=== PATIENT | female | born 1930 | race Caucasian/White ===

== ENCOUNTER 2017-06-19 20:11 | Outpatient (CLI) | payer MEDICARE | END 2017-06-20 07:13 | disposition home or self-care (01) | LOC: SLEEP 20:11 | PROVIDERS: ATTEND Nurse Practitioner Family | DX: G47.10 Hypersomnia, unspecified (principal); G47.33 Obstructive sleep apnea (adult) (pediatric); G47.34 Idiopathic sleep related nonobstructive alveolar hypoventilation | CPT/HCPCS: 95810 ==

== ENCOUNTER 2017-10-31 20:15 | Outpatient (CLI) | payer MEDICARE | END 2017-11-01 07:16 | disposition home or self-care (01) | LOC: SLEEP 20:15 | PROVIDERS: ATTEND Nurse Practitioner Family | DX: G47.33 Obstructive sleep apnea (adult) (pediatric) (principal) | CPT/HCPCS: 95811 ==

== ENCOUNTER → 2017-12-01 | Outpatient (CLI) | payer MEDICARE ==
[~2017-12-01] MED LIST: RT-ALBUTEROL SULF 2.5 MG/3 ML PRE-MIX VIAL INH ONE; RT-ALBUTEROL SULF 2.5 MG/3 ML PRE-MIX VIAL ONE
== END ==
LOC: RT 15:02
PROVIDERS: ATTEND Nurse Practitioner Family
DX: G47.34 Idiopathic sleep related nonobstructive alveolar hypoventilation (principal); R06.00 Dyspnea, unspecified
CPT/HCPCS: 94060; 94726; 94729

== ENCOUNTER → 2018-04-03 | Outpatient (CLI) | payer MEDICARE ==
[2018-04-03 11:39] LABS: BASOPHILS # (AUTO) 0.1 10^3/uL (0.0-0.1); BASOPHILS % (AUTO) 1 % (0-10); EOSINOPHILS # (AUTO) 0.7 10^3/uL (0.0-0.3); EOSINOPHILS % (AUTO) 9 % (0-10); HEMATOCRIT 37 % (35-52); HEMOGLOBIN 12.2 G/DL (11.5-16.0); LYMPHOCYTES # (AUTO) 1.8 X 10^3 (1.0-4.0); LYMPHOCYTES % (AUTO) 22 % (12-44); MEAN CORPUSCULAR HEMOGLOBIN 28 PG (25-34); MEAN CORPUSCULAR HGB CONC 33 G/DL (32-36); MEAN CORPUSCULAR VOLUME 86 FL (80-99); MEAN PLATELET VOLUME 10.8 FL (7.4-10.4); MONOCYTES # (AUTO) 1.1 X 10^3 (0.0-1.0); MONOCYTES % (AUTO) 13 % (0-12); NEUTROPHILS # (AUTO) 4.8 X 10^3 (1.8-7.8); NEUTROPHILS % (AUTO) 56 % (42-75); PLATELET COUNT 192 10^3/uL (130-400); RED BLOOD COUNT 4.29 10^6/uL (4.35-5.85); RED CELL DISTRIBUTION WIDTH 13.3 % (10.0-14.5); WHITE BLOOD COUNT 8.5 10^3/uL (4.3-11.0)
[2018-04-03 11:56] LABS: ALANINE AMINOTRANSFERASE 16 U/L (0-55); ALBUMIN 3.7 GM/DL (3.2-4.5); ALKALINE PHOSPHATASE 60 U/L (40-136); BILIRUBIN,TOTAL 0.4 MG/DL (0.1-1.0); BUN/CREATININE RATIO 18; CALCIUM 9.8 MG/DL (8.5-10.1); CARBON DIOXIDE 26 MMOL/L (21-32); CHLORIDE 103 MMOL/L (98-107); CREATININE SERUM 0.84 MG/DL (0.60-1.30); GFR ESTIMATED > 60; GLUCOSE 256 MG/DL (70-105); POTASSIUM 3.7 MMOL/L (3.6-5.0); SODIUM 139 MMOL/L (135-145); TOTAL PROTEIN 6.3 GM/DL (6.4-8.2)
--- NOTE | 2018-04-03 13:50 | Diagnostic Imaging Report ---
PROCEDURE: CT chest without contrast. TECHNIQUE: Multiple contiguous axial images were obtained through the chest without the use of intravenous contrast. INDICATION: Pneumonia, dyspnea and COPD. No priors. There is no lung mass or suspicious pulmonary nodule. There is no effusion or pneumothorax. There is very mild micronodular infiltrate in the right upper lobe laterally which could be scarring or reflect a mild active inflammatory process. No alveolar consolidation however. No blebs, bullous disease or bronchiectasis. Lung volumes symmetric and normal. No pathological appearing axillary, hilar or mediastinal lymph nodes, aortic and coronary arterial atherosclerotic calcifications. The heart size is normal. The upper abdomen showing no acute appearing abnormality although there is a hyperdense nodule upper pole cortex left kidney oriented medially measuring 3 cm. This could be a complex cystic/hemorrhagic lesion or solid mass. Consider renal ultrasound as its further workup. IMPRESSION: Micronodular interstitial scarring versus mild infiltrate right upper lobe. No other potential acute finding. No alveolar consolidation, effusion or lymphadenopathy. The right upper pole renal mass hyperdense could be hemorrhagic cyst or solid lesion, correlative ultrasound recommended. Dictated by: Dictated on workstation # [id number]
== END ==
LOC: RAD 11:25
PROVIDERS: ATTEND Nurse Practitioner Family
DX: J18.9 Pneumonia, unspecified organism (principal); J44.9 Chronic obstructive pulmonary disease, unspecified; J30.2 Other seasonal allergic rhinitis; N28.89 Other specified disorders of kidney and ureter
CPT/HCPCS: 36415; 71250; 80053; 85025

== ENCOUNTER → 2018-06-02 | Outpatient (CLI) | payer MEDICARE ==
--- NOTE | 2018-06-02 12:23 | Diagnostic Imaging Report ---
PROCEDURE: CT chest without contrast. TECHNIQUE: Multiple contiguous axial images were obtained through the chest without the use of intravenous contrast. INDICATION: Pneumonia. FINDINGS: The previous CT chest exam of 04/03/2018 noted a very mild micronodular infiltrate in the right upper lobe. On this exam, that abnormal parenchymal density has diminished. There is only a very small amount of residual density still present in this region. There are also still patchy alveolar/interstitial infiltrates in the right upper lobe anteriorly. These are similar to the prior exam and could be chronic in nature. In addition, there does appear to be a small 3.5 mm nodule in the right upper lobe (image 22/57). There may be one or two other slightly smaller nodules in this same region. These nodules do not seem to have changed adversely since the prior study and they are most likely benign. Even so, a six-month followup CT chest exam would be recommended. The right lung base and the left lung remain generally clear. The heart size is within normal limits and stable when compared to the prior exam. Coronary artery calcifications are again noted. The aorta is not abnormally dilated. There is no obvious mediastinal or hilar adenopathy. The prominent right lobe of the thyroid seen on the prior study is again evident. The left lobe is generally unremarkable. There is no obvious breast mass. The sections through the upper abdomen again show the roughly 3 cm hyperdense nodule associated with the superior pole of the right kidney. This finding is essentially no different than on the prior exam. This may represent a complicated cyst. I would concur with the recommendation of the previous exam however that ultrasound be performed to better characterize this finding. The bone windows show no evidence for fracture or for destructive lesion. IMPRESSION: 1. The appearance of the chest has improved since the prior exam as the mild micronodular infiltrate in the right upper lobe has diminished. There are still patchy alveolar/interstitial infiltrates in this area which may well be chronic in nature. There is no acute cardiopulmonary abnormality identified. 2. The small nodules in the right upper lobe are most likely benign. Recommendations, as above. 3. There is coronary artery disease. 4. There is a persistent hyperdense nodule along the superior pole of the right kidney. Ultrasound would be recommended to better characterize this finding. Dictated by: Dictated on workstation # [id number]
== END ==
LOC: RAD 11:11
PROVIDERS: ATTEND Nurse Practitioner Family
DX: I25.10 Atherosclerotic heart disease of native coronary artery without angina pectoris (principal); J18.9 Pneumonia, unspecified organism; N28.89 Other specified disorders of kidney and ureter; J98.4 Other disorders of lung; R91.8 Other nonspecific abnormal finding of lung field; G47.33 Obstructive sleep apnea (adult) (pediatric); G47.34 Idiopathic sleep related nonobstructive alveolar hypoventilation; G47.10 Hypersomnia, unspecified
CPT/HCPCS: 71250

== ENCOUNTER 2018-11-30 16:05 | Inpatient (IN) | payer MEDICARE | END 2018-12-03 13:13 | disposition home or self-care (01) | LOC: 4TH 16:05 | DX: J44.1 Chronic obstructive pulmonary disease with (acute) exacerbation (principal); J98.09 Other diseases of bronchus, not elsewhere classified; I10 Essential (primary) hypertension; E78.5 Hyperlipidemia, unspecified; E83.42 Hypomagnesemia; E87.6 Hypokalemia; E11.40 Type 2 diabetes mellitus with diabetic neuropathy, unspecified; E11.65 Type 2 diabetes mellitus with hyperglycemia; T38.0X5A Adverse effect of glucocorticoids and synthetic analogues, initial encounter; M10.9 Gout, unspecified; Z66 Do not resuscitate; F03.90 Unspecified dementia, unspecified severity, without behavioral disturbance, psychotic disturbance, mood disturbance, and anxiety; Z87.891 Personal history of nicotine dependence; Z79.84 Long term (current) use of oral hypoglycemic drugs ==

== ENCOUNTER → 2018-11-30 | Outpatient (CLI) | payer MEDICARE ==
[~2018-11-30] MED LIST changes: +ACET325T49 PO; +ASPI-586 PO; +CALC600T80 PO; +CHLO25TA22 PO; +CLON0.1T PO; +CRV25T PO; +DEXL60CA PO; +DICL100G18 TP; +DONE5TAB8 PO; +FEBU40TA PO; +FLUT1BLS IH; +FURO-124 PO; +GABA-488 PO; +GLMP2T PO; +IPRA3AMP31 IH; +ISM60TCR PO; +LOPE2CAP PO; +LOSA50TA2 PO; +MAGN400O7 PO; +MINO2.5T PO; +MONT10TA21 PO; +ONDN4T PO; +PEDI18TA2 PO; +POTA10TA36 PO; +PRED10TA22 PO; +ROSU5TAB PO; +RT-ALBUINH IH; -RT-ALBUTEROL SULF 2.5 MG/3 ML PRE-MIX VIAL INH ONE; -RT-ALBUTEROL SULF 2.5 MG/3 ML PRE-MIX VIAL ONE
--- NOTE | 2018-11-30 15:51 | Diagnostic Imaging Report ---
PROCEDURE: CT chest without contrast. TECHNIQUE: Multiple contiguous axial images were obtained through the chest without the use of intravenous contrast. Auto Exposure Controls were utilized during the CT exam to meet ALARA standards for radiation dose reduction. INDICATION: COPD. FINDINGS: Comparison is 06/02/2018. There are unchanged bilateral upper lobe tiny micronodules in a perilymphatic distribution, likely chronic. No new or suspicious nodules are seen. No edema or pneumonia. No pleural effusion or pneumothorax. Right thyroid goiter is unchanged. Heart size is normal. No pericardial effusion. Aorta is normal in caliber. No axillary, supraclavicular or mediastinal lymphadenopathy. There are moderate coronary artery calcifications. Limited views of the upper abdomen reveal cholecystectomy and old granulomatous disease in the spleen. An intermediate attenuation 3.1 cm lesion in the upper pole of the right kidney is concerning for renal neoplasm and a multiphase examination is recommended. There are old healed right-sided rib fractures. No suspicious osseous lesions. IMPRESSION: 1. Unchanged chronic appearing perilymphatic micronodules in the lung apices. 2. Persistent intermediate attenuation right upper pole renal lesion for which multiphase CT examination is recommended as this may represent a renal cell carcinoma. Dictated by: Dictated on workstation # [id number]
== END ==
LOC: RAD 14:27
PROVIDERS: ATTEND Nurse Practitioner Family
DX: J44.1 Chronic obstructive pulmonary disease with (acute) exacerbation (principal); N28.9 Disorder of kidney and ureter, unspecified; R91.8 Other nonspecific abnormal finding of lung field
CPT/HCPCS: 71250

== ENCOUNTER → 2019-02-04 | Outpatient (CLI) | payer MEDICARE ==
[2019-02-04 14:22] LABS: BASOPHILS # (AUTO) 0.1 10^3/uL (0.0-0.1); BASOPHILS % (AUTO) 1 % (0-10); EOSINOPHILS # (AUTO) 0.5 10^3/uL (0.0-0.3); EOSINOPHILS % (AUTO) 5 % (0-10); HEMATOCRIT 36 % (35-52); LYMPHOCYTES # (AUTO) 1.6 X 10^3 (1.0-4.0); LYMPHOCYTES % (AUTO) 17 % (12-44); MEAN CORPUSCULAR HEMOGLOBIN 29 PG (25-34); MEAN CORPUSCULAR HGB CONC 33 G/DL (32-36); MEAN CORPUSCULAR VOLUME 88 FL (80-99); MEAN PLATELET VOLUME 11.4 FL (7.4-10.4); MONOCYTES # (AUTO) 0.9 X 10^3 (0.0-1.0); MONOCYTES % (AUTO) 10 % (0-12); NEUTROPHILS # (AUTO) 6.2 X 10^3 (1.8-7.8); NEUTROPHILS % (AUTO) 68 % (42-75); PLATELET COUNT 201 10^3/uL (130-400); RED CELL DISTRIBUTION WIDTH 13.8 % (10.0-14.5); WHITE BLOOD COUNT 9.1 10^3/uL (4.3-11.0)
--- NOTE | 2019-02-04 14:47 | Diagnostic Imaging Report ---
INDICATION: COPD ASTHMA DYSPNEA HYPERSOMNIA COMPARISON: 12/02/2018. FINDINGS: Frontal and lateral views of the chest demonstrate normal heart size and pulmonary vascularity. The lungs are clear. There are no signs of infiltrate, pleural effusions or pneumothoraces. The visualized osseous structures show no acute abnormalities. There is calcified aortic atherosclerosis. IMPRESSION: 1. No acute process. No signs of infiltrates, effusions or pneumothoraces. Dictated by: Dictated on workstation # [id number]
== END ==
LOC: RAD 14:04
PROVIDERS: ATTEND Internal Medicine Critical Care Medicine
DX: J44.9 Chronic obstructive pulmonary disease, unspecified (principal); G47.10 Hypersomnia, unspecified
CPT/HCPCS: 36415; 71046; 83880; 85025